=== PATIENT | male | born 1955 | race Hispanic/Latino ===

== ENCOUNTER 2017-06-30 12:40 | Outpatient (CLI) | payer OTHER ==
--- NOTE | 2017-06-30 15:16 | RAD ---
LUMBAR SPINE 4 VIEWS: HISTORY: Fall off a ladder. COMPARISON: Lumbar spine radiograph 05/19/17. FINDINGS: There appears to be a lumbosacral transitional vertebra. There is lumbarization of S1. The nic alivia fracture of L1 is unchanged. No significant remodeling. There is mild increased sclerosis of the L1 superior end plate which could be remodeling changes. No new acute superimposed fracture or malalignment. No significant listhesis. Osteophytosis is present. No significant listhesis with flexion or extension. IMPRESSION: No further height loss of the L1 compression fracture. No significant translation with flexion or e xtension. POS: [facility]
== END 2017-06-30 12:41 | disposition home or self-care (01) ==
LOC: TBSIIMAG 12:40
PROVIDERS: ATTEND Surgery
DX: M54.5 Low back pain (principal); S32.019D Unspecified fracture of first lumbar vertebra, subsequent encounter for fracture with routine healing
CPT/HCPCS: 72110